=== PATIENT | female | born 1955 | race Hispanic/Latino ===

== ENCOUNTER 2019-04-13 12:51 | Emergency (ER) | payer BC, OTHER ==
[2019-04-13] MEDS ORDERED: ACETAMINOPHEN 325 MG TAB ONE (13:13)
[2019-04-13] MEDS ORDERED: IPRATROPIUM/ALBUTEROL SULFATE 3 ML SOLUTION IH ONE ×2 (13:27→13:30)
[2019-04-13 13:35] LABS: RAPID GROUP A STREP NEGATIVE (NEGATIVE)
== END 2019-04-13 14:16 | disposition home or self-care (01) ==
LOC: EDH 12:51
DX: J06.9 Acute upper respiratory infection, unspecified (principal); I10 Essential (primary) hypertension; J45.909 Unspecified asthma, uncomplicated; Z90.710 Acquired absence of both cervix and uterus
CPT/HCPCS: 87804; 87880; 94640

== ENCOUNTER 2020-10-01 11:44 | Emergency (ER) | payer BC ==
[~2020-10-01] VITALS: Ht 165.1 cm; Wt 72.6 kg
[2020-10-01 11:45] VITALS: BP 163/56
[2020-10-01] MEDS ORDERED: ASPIRIN 81MG CHEW TAB PO ONE (13:00)
[2020-10-01 13:13] LABS: BASOPHILS % (AUTO) 1.3 % (0.0-5.0); EOSINOPHILS % (AUTO) 2.6 % (0.0-8.0); HEMATOCRIT 38.4 % (36-48); LYMPHOCYTES % (AUTO) 23.3 % (21.0-51.0); MEAN CORPUSCULAR HEMOGLOBIN 29.6 pg (27.0-33.0); MEAN CORPUSCULAR HGB CONC 33.3 g/dL (32.0-36.0); MEAN CORPUSCULAR VOLUME 88.9 fL (79-99); MONOCYTES % (AUTO) 7.6 % (3.0-13.0); PLATELET COUNT (AUTO) 249 K/uL (130-400); RED BLOOD CELL COUNT(AUTO) 4.32 MIL/uL (4.00-5.50); WHITE BLOOD COUNT (AUTO) 8.6 K/uL (4.8-10.8)
[2020-10-01 13:21] LABS: CARBON DIOXIDE 31 mmol/L (21-32); CHLORIDE 100 mmol/L (101-111); CREATININE 0.8 mg/dL (0.5-1.5); GLOMERULAR FILTR. RATE CALC 76 mL/min (>60); GLUCOSE,RANDOM 107 mg/dL (70-105); POTASSIUM 3.1 mmol/L (3.5-5.1); SODIUM SERUM 139 mmol/L (136-145); UREA NITROGEN, BLOOD 17 mg/dL (7-18)
[2020-10-01 13:29] LABS: PROTHROMBIN TIME 10.9 SEC (9.6-11.6)
[2020-10-01] MEDS ORDERED: ASPIRIN 325 MG TABLET ONE (13:31)
[2020-10-01 13:32] LABS: ALANINE AMINOTRANSFERASE 20 U/L (12-78); ALBUMIN 3.8 g/dL (3.5-5.0); ASPARTATE AMINOTRANSFERASE 17 U/L (10-37); BILIRUBIN,TOTAL 0.8 mg/dL (0.2-1.0); CHOLESTEROL 186 mg/dL (<200); CREATINE KINASE, TOTAL 147 U/L (21-232); HDL CHOLESTEROL 79 mg/dL (35-85); LDL DIRECT 95 mg/dL (0-99); MYOGLOBIN 77 ng/mL (10-92); TOTAL PROTEIN, SERUM 7.7 g/dL (6.0-8.3); TRIGLYCERIDES 68 mg/dL (30-200); TROPONIN I < 0.04 ng/mL (0.00-0.06)
[2020-10-01 13:34] LABS: B-TYPE NATRIURETIC PEPTIDE 32 pg/mL (0-100)
[2020-10-01 13:59] VITALS: BP 144/64
[2020-10-01 14:14] LABS: APPEARANCE,URINE Clear (CLEAR); BILIRUBIN,URINE Negative (NEGATIVE); COLOR,URINE Yellow (YELLOW); GLUCOSE, URINE (UA) Negative (NEGATIVE); KETONES,URINE Negative (NEGATIVE); LEUKOCYTE ESTERASE ,URINE Large (NEGATIVE); NITRATE,URINE Negative (NEGATIVE); OCCULT BLOOD,URINE Small (NEGATIVE); PH,URINE 5.5 (5.0-8.0); PROTEIN,URINE Negative (NEGATIVE); UROBILINOGEN,URINE 0.2 mg/dL (0.2-1.0)
[2020-10-01 14:44] LABS: BACTERIA,URINE Few /HPF (None Seen); MUCUS,URINE Rare LPF (None Seen); RBC,URINE 0-1 /HPF (0-1); SQUAMOUS EPITHELIAL CELL,UR Few /HPF (0-2)
[2020-10-01] MEDS ORDERED: MECLIZINE HCL 25 MG TABLET PO ONE (15:00)
[2020-10-01] MEDS ORDERED: 0.9%NACL 1000ML 1,000 ML IV ONE ×2 (15:00)
[2020-10-01] MEDS ORDERED: CEFTRIAXONE 1G VIAL IVP ONE (15:30)
[2020-10-01 16:19] VITALS: BP 121/51
[2020-10-01] MEDS ORDERED: MECL-226 PO (17:35)
[2020-10-01] MEDS ORDERED: CIPR500T10 PO (17:35)
== END 2020-10-01 18:43 | disposition home or self-care (01) ==
LOC: EDH 11:44
DX: N39.0 Urinary tract infection, site not specified (principal); R42 Dizziness and giddiness; R07.89 Other chest pain; R00.2 Palpitations; R06.02 Shortness of breath; I10 Essential (primary) hypertension; J45.909 Unspecified asthma, uncomplicated
CPT/HCPCS: 36415; 70450; 71045; 80053; 80061; 81001; 82550; 83735; 83874; 83880; 84484; 85025; 85610; 87088; 93005; 96361; 96374; 99285; J0696; J7030

== ENCOUNTER 2022-05-06 11:21 | Emergency (ER) | payer BC, OTHER ==
[~2022-05-06] VITALS: Ht 165.1 cm; Wt 77.1 kg
[~2022-05-06 11:21] MED LIST: CIPR500T10 PO; FAMO20TA8 PO; MECL-226 PO; ONDA4TAB10 PO; POTA-187 PO
[2022-05-06 11:36] VITALS: BP 177/74
[2022-05-06] MEDS ORDERED: ACET-66 PO (13:48)
== END 2022-05-06 14:23 | disposition home or self-care (01) ==
LOC: EDH 11:21
DX: S09.90XA Unspecified injury of head, initial encounter (principal); M54.2 Cervicalgia; I10 Essential (primary) hypertension; E78.00 Pure hypercholesterolemia, unspecified; Z79.899 Other long term (current) drug therapy; Z79.2 Long term (current) use of antibiotics; W22.8XXA Striking against or struck by other objects, initial encounter; Y93.89 Activity, other specified; Y92.89 Other specified places as the place of occurrence of the external cause; Y99.0 Civilian activity done for income or pay
CPT/HCPCS: 70450; 72125

== ENCOUNTER 2023-06-13 13:27 | Emergency (ER) | payer OTHER ==
[~2023-06-13] VITALS: Ht 165.1 cm; Wt 86.2 kg
[~2023-06-13 13:27] MED LIST changes: +ACET-66 PO
[2023-06-13 14:00] LABS: APPEARANCE,URINE CLEAR (CLEAR); BILIRUBIN,URINE NEGATIVE (NEGATIVE); COLOR,URINE LIGHT-YELLOW (YELLOW); GLUCOSE, URINE (UA) NEGATIVE (NEGATIVE); KETONES,URINE NEGATIVE (NEGATIVE); LEUKOCYTE ESTERASE ,URINE 250 Leu/uL (NEGATIVE); NITRATE,URINE NEGATIVE (NEGATIVE); OCCULT BLOOD,URINE MODERATE (NEGATIVE); PH,URINE 5.5 (5.0-8.0); PROTEIN,URINE NEGATIVE (NEGATIVE); UROBILINOGEN,URINE 0.2 mg/dL (0.2-1.0)
[2023-06-13 14:03] LABS: ADD UA MICROSCOPIC YES
[2023-06-13 14:05] LABS: BACTERIA,URINE RARE /HPF (None Seen); MUCUS,URINE RARE LPF (None Seen); SQUAMOUS EPITHELIAL CELL,UR RARE /HPF (0-2)
[2023-06-13 14:08] LABS: BASOPHILS # (AUTO) 0.09 K/uL (0.00-0.20); BASOPHILS % (AUTO) 1.6 % (0.0-5.0); EOSINOPHILS # (AUTO) 0.26 K/uL (0.00-0.70); EOSINOPHILS % (AUTO) 4.7 % (0.0-8.0); HEMATOCRIT 36.1 % (36-48); IMMATURE GRANULOCYTE ABSOLUTE 0.01 K/uL (0-1); LYMPHOCYTES # (AUTO) 1.7 K/uL (1.0-4.8); LYMPHOCYTES % (AUTO) 30.6 % (21.0-51.0); MEAN CORPUSCULAR HEMOGLOBIN 29.9 pg (27.0-33.0); MEAN CORPUSCULAR VOLUME 90.7 fL (79-99); MONOCYTES # (AUTO) 0.5 K/uL (0.1-1.0); NEUTROPHILS % (AUTO) 53.9 % (40.0-77.0); PLATELET COUNT (AUTO) 225 K/uL (130-400); RED BLOOD CELL COUNT(AUTO) 3.98 MIL/uL (4.00-5.50); RED CELL DISTRIBUTION WIDTH 12.7 % (11.0-15.5); WHITE BLOOD COUNT (AUTO) 5.5 K/uL (4.8-10.8)
[2023-06-13 14:17] LABS: CREATININE 0.8 mg/dL (0.5-1.0); POTASSIUM 3.4 mmol/L (3.5-5.1)
[2023-06-13 14:21] LABS: ALBUMIN 3.2 g/dL (3.5-5.0); BILIRUBIN,TOTAL 0.8 mg/dL (0.2-1.0); TOTAL PROTEIN, SERUM 6.6 g/dL (6.0-8.3)
[2023-06-13] MEDS ORDERED: ACET-66 PO (16:01)
[2023-06-13 16:20] VITALS: BP 141/62; PULSE 73; RESP 16; O2SAT 98
[2023-06-13] MEDS: KETOROLAC 30MG VIAL (30MG/ML) IM ONE (16:30)
== END 2023-06-13 16:36 | disposition home or self-care (01) ==
LOC: EDH 13:27
DX: S39.012A Strain of muscle, fascia and tendon of lower back, initial encounter (principal); N39.0 Urinary tract infection, site not specified; E78.00 Pure hypercholesterolemia, unspecified; I10 Essential (primary) hypertension; J45.909 Unspecified asthma, uncomplicated; Z79.899 Other long term (current) drug therapy; Z90.710 Acquired absence of both cervix and uterus; X58.XXXA Exposure to other specified factors, initial encounter; Y93.89 Activity, other specified; Y92.89 Other specified places as the place of occurrence of the external cause; Y99.8 Other external cause status
CPT/HCPCS: 99285; 74176; 84484; 80053; 85025; 87088; 81001; 36415; 96372; J1885

== ENCOUNTER 2023-07-07 07:38 | Emergency (ER) | payer OTHER ==
[~2023-07-07] VITALS: Ht 165.1 cm; Wt 86.2 kg
[2023-07-07 08:03] VITALS: BP 136/61; PULSE 67; RESP 18; O2SAT 98
[2023-07-07 08:10] LABS: HEMATOCRIT 34.8 % (36-48); MEAN CORPUSCULAR HEMOGLOBIN 30.1 pg (27.0-33.0); MEAN CORPUSCULAR HGB CONC 33.9 g/dL (32.0-36.0); MEAN CORPUSCULAR VOLUME 88.8 fL (79-99); RED BLOOD CELL COUNT(AUTO) 3.92 MIL/uL (4.00-5.50); RED CELL DISTRIBUTION WIDTH 12.8 % (11.0-15.5); WHITE BLOOD COUNT (AUTO) 6.3 K/uL (4.8-10.8)
[2023-07-07 08:11] LABS: APPEARANCE,URINE CLEAR (CLEAR); BILIRUBIN,URINE NEGATIVE (NEGATIVE); COLOR,URINE YELLOW (YELLOW); GLUCOSE, URINE (UA) NEGATIVE (NEGATIVE); KETONES,URINE NEGATIVE (NEGATIVE); LEUKOCYTE ESTERASE ,URINE 500 Leu/uL (NEGATIVE); NITRATE,URINE NEGATIVE (NEGATIVE); OCCULT BLOOD,URINE LARGE (NEGATIVE); PROTEIN,URINE 10 mg/dL (NEGATIVE); UROBILINOGEN,URINE 0.2 mg/dL (0.2-1.0)
[2023-07-07] MEDS: KETOROLAC 15MG/ML VIAL (15MG/ML) IV ONE (08:13)
[2023-07-07 08:16] LABS: ADD UA MICROSCOPIC YES
[2023-07-07 08:20] LABS: ALBUMIN 3.6 g/dL (3.5-5.0); CREATININE 0.6 mg/dL (0.5-1.0); POTASSIUM 3.2 mmol/L (3.5-5.1); TOTAL PROTEIN, SERUM 7.2 g/dL (6.0-8.3)
[2023-07-07 08:28] LABS: BACTERIA,URINE RARE /HPF (None Seen); MUCUS,URINE RARE LPF (None Seen); SQUAMOUS EPITHELIAL CELL,UR RARE /HPF (0-2)
[2023-07-07] MEDS: CEFTRIAXONE 1G VIAL IVPB ONE (10:10)
[2023-07-07] MEDS ORDERED: IBUP-2070 PO (10:29)
[2023-07-07] MEDS ORDERED: MACR100 PO (10:29)
== END 2023-07-07 10:38 | disposition home or self-care (01) ==
LOC: EDH 07:38
DX: N39.0 Urinary tract infection, site not specified (principal); R10.9 Unspecified abdominal pain; E78.00 Pure hypercholesterolemia, unspecified; I10 Essential (primary) hypertension; J45.909 Unspecified asthma, uncomplicated; Z79.899 Other long term (current) drug therapy; Z90.710 Acquired absence of both cervix and uterus
CPT/HCPCS: 99285; 74176; 96365; 96375; 80053; 85027; 87088; 81001; 36415; J0696; J1885

== ENCOUNTER → 2023-11-01 | Outpatient (CLI) | payer OTHER ==
[~2023-11-01] VITALS: Ht 165.1 cm; Wt 87.4 kg
[~2023-11-01] MED LIST changes: +ALBUTEROL IH; +CRESTO; +CRESTOR PO; +FLUT1BLS3 IH; +IBUP-2070 PO; +LOSA1TAB42 PO; +MACR100 PO; +ONDA-243 PO; -ONDA4TAB10 PO
[2023-11-01 10:00] LABS: BASOPHILS # (AUTO) 0.12 K/uL (0.00-0.20); BASOPHILS % (AUTO) 1.5 % (0.0-5.0); EOSINOPHILS # (AUTO) 0.39 K/uL (0.00-0.70); EOSINOPHILS % (AUTO) 4.9 % (0.0-8.0); HEMATOCRIT 37.7 % (36-48); IMMATURE GRANULOCYTE ABSOLUTE 0.03 K/uL (0-1); LYMPHOCYTES # (AUTO) 1.3 K/uL (1.0-4.8); MEAN CORPUSCULAR HEMOGLOBIN 29.7 pg (27.0-33.0); MEAN CORPUSCULAR HGB CONC 32.9 g/dL (32.0-36.0); MEAN CORPUSCULAR VOLUME 90.4 fL (79-99); MONOCYTES # (AUTO) 0.6 K/uL (0.1-1.0); NEUTROPHILS # (AUTO) 5.4 K/uL (1.8-7.7); NEUTROPHILS % (AUTO) 68.2 % (40.0-77.0); PLATELET COUNT (AUTO) 232 K/uL (130-400); RED BLOOD CELL COUNT(AUTO) 4.17 MIL/uL (4.00-5.50); RED CELL DISTRIBUTION WIDTH 12.6 % (11.0-15.5); WHITE BLOOD COUNT (AUTO) 7.9 K/uL (4.8-10.8)
[2023-11-01 10:09] LABS: CREATININE 0.7 mg/dL (0.5-1.0); POTASSIUM 3.6 mmol/L (3.5-5.1)
[2023-11-01 10:17] LABS: APPEARANCE,URINE CLEAR (CLEAR); BILIRUBIN,URINE NEGATIVE (NEGATIVE); COLOR,URINE LIGHT-YELLOW (YELLOW); GLUCOSE, URINE (UA) NEGATIVE (NEGATIVE); KETONES,URINE NEGATIVE (NEGATIVE); LEUKOCYTE ESTERASE ,URINE 25 Leu/uL (NEGATIVE); NITRATE,URINE NEGATIVE (NEGATIVE); OCCULT BLOOD,URINE MODERATE (NEGATIVE); PROTEIN,URINE NEGATIVE (NEGATIVE); UROBILINOGEN,URINE 0.2 mg/dL (0.2-1.0)
[2023-11-01 10:22] LABS: B-TYPE NATRIURETIC PEPTIDE 112 pg/mL (0-100)
[2023-11-01 10:33] LABS: INR 1.01 (0.85-1.15); PROTHROMBIN TIME 10.9 SEC (9.6-11.6)
[2023-11-01 10:34] LABS: PARTIAL THROMBOPLASTIN TIME 29.1 SEC (26.3-35.5)
[2023-11-01 10:48] LABS: ADD UA MICROSCOPIC YES
[2023-11-01 11:11] LABS: MUCUS,URINE RARE LPF (None Seen); SQUAMOUS EPITHELIAL CELL,UR RARE /HPF (0-2); WBC,URINE 0-1 /HPF (0-1)
[2023-11-01 11:42] VITALS: BP 185/74; PULSE 68; RESP 16
== END | disposition home or self-care (01) ==
LOC: EDSTATUS 08:00 → DAH 10:00
PROVIDERS: ATTEND Internal Medicine Cardiovascular Disease
DX: I25.10 Atherosclerotic heart disease of native coronary artery without angina pectoris (principal); R07.89 Other chest pain; I70.0 Atherosclerosis of aorta; M47.814 Spondylosis without myelopathy or radiculopathy, thoracic region
CPT/HCPCS: 36415; 71045; 80048; 81001; 83880; 85025; 85610; 85730; 93005